=== PATIENT | male | born 1995 | race Caucasian/White ===

== ENCOUNTER 2019-11-19 04:55 | Emergency (ER) | payer OTHER ==
[~2019-11-19] VITALS: Ht 177.8 cm; Wt 56.7 kg
[2019-11-19 05:01] VITALS: BP 156/81
--- NOTE | 2019-11-19 05:07 | NUR ---
pt ambulated to er bed 9 w/ steady gait
--- NOTE | 2019-11-19 05:10 | NUR ---
23 Male patient presents to the ED with c/o anxiety secondary to chest pain and feelings of nausea x 1 hour. pt states he was talking to his when he suddenly started feeling a sharp pain on his chest. denies any injury or trauma. no other s/sx. pmhx: asthnma
[2019-11-19] MEDS ORDERED: DOPPLER MC ONE (06:43)
[2019-11-19] MEDS ORDERED: LORazepam 0.5 MG TAB PO ONE (07:15)
[2019-11-19] MEDS ORDERED: NACL 0.9% 1,000 ML IV ONE (07:15)
--- NOTE | 2019-11-19 07:26 | NUR ---
Report received from MERT Napoles. Resume nursing care at this time.
--- NOTE | 2019-11-19 07:31 | NUR ---
patient endorsement reported to Latrice PAINTING. transfer of care at this time.
[2019-11-19 07:54] LABS: BASOPHILS % (AUTO) 0.4 % (0.0-2.0); EOSINOPHILS # (AUTO) 0.1 K/uL (0-0.4); EOSINOPHILS % (AUTO) 0.8 % (0.0-4.0); HEMATOCRIT 42.7 % (36-52); HEMOGLOBIN 14.2 g/dL (12.0-18.0); LYMPHOCYTES # (AUTO) 1.5 K/uL (2.0-11.5); LYMPHOCYTES % (AUTO) 18.2 % (20.5-51.1); MEAN CORPUSCULAR HEMOGLOBIN 29 pg (27-31); MEAN CORPUSCULAR HGB CONC 33 g/dL (33-37); MEAN CORPUSCULAR VOLUME 88.1 fL (80-94); MONOCYTES # (AUTO) 0.6 K/uL (0.8-1.0); MONOCYTES % (AUTO) 6.5 % (1.7-9.3); NEUTROPHILS # (AUTO) 6.2 K/uL (1.8-7.7); NEUTROPHILS % (AUTO) 74.1 % (42.2-75.2); PLATELET COUNT (AUTO) 254 K/uL (140-450); RED BLOOD CELL COUNT(AUTO) 4.85 MIL/uL (4.20-6.10); RED CELL DISTRIBUTION WIDTH 13.7 % (11.6-13.7); WHITE BLOOD COUNT (AUTO) 8.4 K/uL (4.8-10.8)
[2019-11-19 08:08] LABS: ALBUMIN 4.2 g/dL (3.4-5.0); ANION GAP 14.4 (8-16); CARBON DIOXIDE 26.4 mmol/L (21-32); CREATININE 1.1 mg/dL (0.6-1.3); POTASSIUM 3.8 mmol/L (3.5-5.1); TOTAL BILIRUBIN 0.4 mg/dL (0.0-1.0)
--- NOTE | 2019-11-19 08:52 | NUR ---
Patient discharged with v/s stable. Written and verbal after care instructions given and explained. Patient verbalized understanding. Ambulatory with steady gait. All questions addressed prior to discharge. Advised to follow up with PMD. All lab and imaging report copied provided to patient.
[2019-11-19 09:52] VITALS: BP 123/85
== END 2019-11-19 08:52 | disposition home or self-care (01) ==
LOC: MED 04:55
DX: R07.9 Chest pain, unspecified (principal); J45.909 Unspecified asthma, uncomplicated
CPT/HCPCS: 36415; 71045; 71275; 74174; 80053; 84484; 85025; 93005; 96360; 96361; 99285; J7030; Q0092; Q9967

== ENCOUNTER 2022-07-31 02:48 | Emergency (ER) | payer SELFPAY ==
[~2022-07-31] VITALS: Ht 180.3 cm; Wt 58.1 kg
[2022-07-31 02:58] VITALS: BP 122/70
--- NOTE | 2022-07-31 03:09 | NUR ---
TO BED 4 FOLLOWING TRIAGE
--- NOTE | 2022-07-31 03:10 | NUR ---
c/o 10/26 left knee pain. per pt, radiates to upper thigh and feels sharp and burning. per pt, was injured during soccer on 07/17, went to urgent care and was scheduled for an MRI on 08/13 but was told to come to ER if swelling occurs.
--- NOTE | 2022-07-31 03:46 | NUR ---
dr. baker by bedside evaluating patient
[2022-07-31] MEDS ORDERED: KETOROLAC 30 MG/ML VIAL IM ONE (03:55)
[2022-07-31] MEDS ORDERED: NAPR-54 PO (03:57)
[2022-07-31 04:48] VITALS: BP 109/70
--- NOTE | 2022-07-31 04:50 | NUR ---
Patient discharged with v/s stable. Written and verbal after care instructions given and explained. New rx naproxen. Patient verbalized understanding. Ambulatory with steady gait. All questions addressed prior to discharge. Advised to follow up with PMD.
== END 2022-07-31 04:47 | disposition home or self-care (01) ==
LOC: MED 02:48
DX: M25.561 Pain in right knee (principal); J45.909 Unspecified asthma, uncomplicated; Z79.1 Long term (current) use of non-steroidal anti-inflammatories (NSAID)
CPT/HCPCS: 29505; 73562; 96372; 99283; J1885; Q0092

== ENCOUNTER 2023-05-19 03:55 | Emergency (ER) | payer BC ==
[~2023-05-19] VITALS: Ht 177.8 cm; Wt 58.1 kg
[~2023-05-19 03:55] MED LIST: NAPR-54 PO
[2023-05-19 04:05] VITALS: BP 121/85; PULSE 84; RESP 17; TEMP 97.9; O2SAT 100
[2023-05-19 05:15] LABS: BASOPHILS # (AUTO) 0.1 K/uL (0.00-0.22); EOSINOPHILS # (AUTO) 0.4 K/uL (0-0.4); EOSINOPHILS % (AUTO) 5.7 % (0.0-4.0); HEMATOCRIT 41.2 % (36-52); HEMOGLOBIN 14.2 g/dL (12.0-18.0); LYMPHOCYTES # (AUTO) 2.5 K/uL (2.0-11.5); LYMPHOCYTES % (AUTO) 37.3 % (20.5-51.1); MEAN CORPUSCULAR HEMOGLOBIN 30 pg (27-31); MEAN CORPUSCULAR HGB CONC 35 g/dL (33-37); MEAN CORPUSCULAR VOLUME 87.4 fL (80-94); MONOCYTES # (AUTO) 0.5 K/uL (0.8-1.0); MONOCYTES % (AUTO) 7.3 % (1.7-9.3); NEUTROPHILS # (AUTO) 3.3 K/uL (1.8-7.7); NEUTROPHILS % (AUTO) 48.7 % (42.2-75.2); PLATELET COUNT (AUTO) 271 K/uL (140-450); RED BLOOD CELL COUNT(AUTO) 4.71 MIL/uL (4.20-6.10); RED CELL DISTRIBUTION WIDTH 14.3 % (11.6-13.7); WHITE BLOOD COUNT (AUTO) 6.8 K/uL (4.8-10.8)
[2023-05-19 05:30] LABS: ANION GAP 8.9 (8-16); CALCIUM 9.1 mg/dL (8.5-10.1); CARBON DIOXIDE 30.9 mmol/L (21-32); POTASSIUM 3.8 mmol/L (3.5-5.1)
[2023-05-19 05:34] LABS: INR 1.03 (0.8-1.2); PARTIAL THROMBOPLASTIN TIME 26.3 secs (22-35.6); PROTHROMBIN TIME 10.8 secs (10.8-13.4)
[2023-05-19] MEDS ORDERED: ACETAMINOPHEN EXTRA STRENGTH 500 MG TAB PO ONE (05:50)
[2023-05-19] MEDS ORDERED: KETOROLAC 30 MG/ML VIAL IVP ONE (05:50)
[2023-05-19] MEDS ORDERED: IBUP-2213 PO (08:19)
== END 2023-05-19 08:35 | disposition home or self-care (01) ==
LOC: MED 03:55
DX: R07.9 Chest pain, unspecified (principal); J45.909 Unspecified asthma, uncomplicated; Z79.899 Other long term (current) drug therapy
CPT/HCPCS: 36415; 71045; 80048; 84484; 85025; 85610; 85730; 93005; 96374; 99285; J1885